=== PATIENT | female | born 1970 | race Caucasian/White ===

== ENCOUNTER → 2017-09-08 | Day surgery (SDC) | payer OTHER ==
[~2017-09-08] VITALS: Ht 170.2 cm; Wt 90.7 kg
--- NOTE | 2017-09-08 12:40 | Operative Report ---
Operative/Inv Procedure Report Surgery Date: 09/08/17 Name of Procedure: Bilateral breast reduction Pre-Operative Diagnosis: Symptomatic macromastia Post-Operative Diagnosis: Same Estimated Blood Loss: scant (200) Surgeon/Behavior Therapist: Roque Cardenas MD Anesthesia: general endotracheal tube Operative/Procedure Note Note: Patient was counseled regards the procedure the alternatives the risks and the expected outcomes as relates to request for surgical intervention to treat symptomatic macromastia. She was given a SPS informed consent which she has returned sign has no questions regarding. No guarantees were given in regards to cup size. In the standing position with a tape measure for an inferior pedicle Devlin pattern technique. She signed informed consent. She was taken to the operating room placed supine on the table Venodyne boots are placed and general anesthesia was established and intravenous antibiotics were given. The chest was prepped and draped in usual sterile fashion. De-epithelialization was carried out of the inferior pedicle and segments were removed superiorly medially and laterally. She was put in the sitting position with temporary closure to locate the nipple location. 3 layer closure was carried out of all wounds. Ends dictation
== END ==
LOC: STS 03:10
DX: N62 Hypertrophy of breast (principal); R51 Headache
CPT/HCPCS: 81025; J0690; J2250; J3250; Q9968